=== PATIENT | female | born 1985 | race Caucasian/White ===

== ENCOUNTER 2017-09-26 04:41 | Emergency (ER) | payer OTHER ==
[~2017-09-26] VITALS: Ht 152.4 cm; Wt 58.5 kg
[2017-09-26 04:48] VITALS: Ht 152.4 cm; Wt 58.5 kg
[2017-09-26 07:20] VITALS: BP 122/76
== END 2017-09-26 07:20 | disposition home or self-care (01) ==
LOC: ED 04:41
DX: N39.0 Urinary tract infection, site not specified (principal)
CPT/HCPCS: J1885